=== PATIENT | female | born 1995 | race American Indian/Alaskan Native ===

== ENCOUNTER 2020-01-04 05:54 | Day surgery (SDC) | payer OTHER ==
[~2020-01-04 05:54] MED LIST: BUPIVACAINE/PF (0.25%) 2.5 MG/ML 30 ML VIAL INFILTRATI ONE; LIDOCAINE (1%) 10 MG/1 ML VIAL 20 ML MDV INFILTRATI ONE; SODIUM CHLORIDE 0.9% IRR 1,500 ML BOTTLE IR ONE
[2020-01-04] MEDS ORDERED: LACTATED RINGERS 1,000 ML IV SCH (06:00)
[2020-01-04] MEDS ORDERED: MIDAZOLAM 2 MG/2 ML INJ IV NR (06:00)
[2020-01-04] MEDS ORDERED: MAGNESIUM OXIDE 400 MG TAB PO SCH (06:00)
[2020-01-04] MEDS ORDERED: ceFAZolin/Water 2 GM/20 ML 2 GM/20 ML SYRINGE IV NR (06:00)
[2020-01-04] MEDS ORDERED: SCOPOLAMINE TRANSDERMAL PATCH 72 HR TD NR (06:00)
[2020-01-04] MEDS ORDERED: GABAPENTIN 300 MG CAP PO NR (06:00)
[2020-01-04] MEDS ORDERED: CELECOXIB 200 MG CAP PO NR (06:00)
[2020-01-04] MEDS ORDERED: BACTERIOSTATIC SODIUM CHLORIDE 0.9% 30 ML VIAL INFILTRATI ONE (06:25)
[2020-01-04] MEDS ORDERED: BUPIVACAINE/PF (0.25%) 2.5 MG/ML 30 ML VIAL INFILTRATI ONE ×2 (06:59→08:27)
[2020-01-04] MEDS ORDERED: LIDOCAINE (1%) 10 MG/1 ML VIAL 20 ML MDV ONE (06:59)
[2020-01-04] MEDS ORDERED: HYDROmorphone 1 MG/1 ML INJ ONE (07:12)
[2020-01-04] MEDS ORDERED: LIDOCAINE MPF (2%) 20 MG/1 ML VIAL 5 ML ONE (07:13)
[2020-01-04] MEDS ORDERED: propofoL 200 MG/20 ML VIAL IV ONE (07:13)
--- NOTE | 2020-01-04 07:22 | Short Stay Summary ---
Short Stay Documentation Date of service: 01/04/20 Narrative H&P: This is a 24-year-old premenopausal -[place] lady with right breast fibroadenoma. Patient recently underwent right breast mass at the 10 o'clock position 4 cm from the nipple ultrasound-guided needle core biopsy with findings of a fibroadenoma. Recommendations are to proceed with an excisional biopsy given increase in size. - History Past Medical History: No medical history Past Surgical History: No surgical history Social history: no significant social history - Allergies and Medications Current Medications: Allergies No Known Allergies Allergy (Verified 12/29/19 10:56) Home Medications Medication Instructions Recorded Confirmed Last Taken Type Norgestimate-Ethinyl Estradiol 1 each PO QDAY 08/05/19 12/29/19 01/03/20 History [Tri-Sprintec Tablet] Ferrous Sulfate [Iron 325 MG] 325 mg PO QDAY 12/29/19 12/29/19 01/03/20 History Active Medications Celecoxib (Celebrex) 200 mg PO PREOP NR Stop: 01/04/20 23:59 Gabapentin (Gabapentin) 600 mg PO PREOP NR Stop: 01/04/20 23:00 Cefazolin Sodium (Ancef/Sterile Water 2 Gm/20 Ml) 2 gm in 20 mls @ 80 mls/hr IV PREOP NR; Protocol Stop: 01/04/20 23:00 Lactated Ringer's (Lactated Ringers) 1,000 mls @ 100 mls/hr IV DIRECT SHALONDA Stop: 01/04/20 23:59 Magnesium Oxide (Mag-Ox) 400 mg PO PREOP SHALONDA Stop: 01/04/20 23:00 Midazolam HCl (Versed) 2 mg IV PREOP NR Stop: 01/04/20 23:00 Scopolamine (Transderm-Scop) 1 each TD PREOP NR Stop: 01/04/20 23:00 - Physical exam General appearance: no acute distress Integumentary: no rash, no growths, no abnormal pigmentation HEENT: Atraumatic, PERRLA, EOMI Lungs: Clear to auscultation Breasts: other (Known palpable mobile right breast fibroadenoma at 10:00 position 4 cm from the nipple) Heart: Regular rate Gastrointestinal: normal Female Genitourinary: deferred Rectal Exam: deferred Extremities: no ischemia, pulses intact, pulses symmetrical, No edema, normal temperature, normal color, Full ROM Neurological: Normal gait, Normal speech, Strength at 5/5 X4 ext, Normal tone, Sensation intact, Cranial nerves 3-12 NL, Reflexes 2+ - Brief post op/procedure progress note Date of procedure: 01/04/20 Pre-op diagnosis: Right breast fibroadenoma Post-op diagnosis: same Procedure: Right breast fibroadenoma excisional biopsy Anesthesia: GETA Findings: right breast fibroadenoma at 10:00 position 4 cm FN Surgeon: ABIMAEL LIU Estimated blood loss: minimal Pathology: list (right breast mass) Specimen disposition: to lab Condition: stable - Disposition Condition at discharge: Good Disposition: DC-01 TO HOME OR SELFCARE Short Stay Discharge Plan Activity: other (no heavy lifting) Diet: regular Wound: keep clean and dry (may shower on Thursday; no baths, pools or lakes; apply bacitracin twice a day) Follow up with: ABIMAEL LIU MD [Staff Physician] - 7 Days Prescriptions: oxyCODONE /ACETAMINOPHEN [Percocet 5/325] 1 tab PO Q6HR PRN #10 tablet PRN Reason: Pain
--- NOTE | 2020-01-04 07:29 | Operative Report ---
Operative Report Operative Report: January 04, 2020 Preoperative diagnosis: Right breast fibroadenoma of the upper outer quadrant Postoperative diagnosis: Same Procedure: Right breast fibroadenoma excisional biopsy of the upper outer quadrant Surgeon: Miesha Borjas MD Anesthesia: General Findings: Known right breast fibroadenoma palpable mobile mass at the 10 o'clock position 4 cm from the nipple with excision performed Complications: None Estimate estimated blood loss: Minimal Drains: None Disposition: PACU in good condition Occasions for operative procedure: This is a 24-year-old premenopausal - [place] lady with a right breast fibroadenoma of the of the upper outer quadrant. Patient with known mobile right breast mass at the 10 o'clock position 4 cm from the nipple and recent biopsy performed and recommendations for excisional biopsy given increase in size. Patient wished to proceed with the above procedure. Procedure in detail: Patient was taken to the operating room and was laid supine. General anesthesia was administered. Right breast palpable mobile fibroadenoma was present at the 10 o'clock position 4 cm from the nipple. The right breast was prepped and draped in the normal sterile operative fashion. Ultrasound was used as well. Lateral periareolar breast incision was made around the 10 o'clock position, skin incision made with a 15 blade knife. Dissection was taken down to the subcutaneous tissues. Procedure then began with raising of the lateral flap and the fibroadenoma was encountered that was appropriately dissected free from the surrounding breast tissues. Fibroadenoma with vascularity. Fibroadenoma was sent to pathology. Hemostasis was obtained with the Bovie cautery. The breast cavity was anesthetized with 1% lidocaine mixed with quarter percent Marcaine. Breast cavity was irrigated and suctioned. Hemostasis was present. The deep breast tissues were approximated and closed using interrupted 3-0 Vicryl, the subcutaneous tissue approximately and closed using interrupted 3-0 Vicryl. The skin was closed using running 4-0 Monocryl followed by Dermabond. She tolerated the procedure very well and was awakened from surgery without any complications and transported PACU in good condition.
[2020-01-04] MEDS ORDERED: dexAMETHasone 20 MG/5 ML VIAL ONE (07:35)
[2020-01-04] MEDS ORDERED: HYDROmorphone 1 MG/1 ML INJ IV PRN (07:40)
[2020-01-04] MEDS ORDERED: ONDANSETRON 4 MG/2 ML INJ IV PRN (07:40)
--- NOTE | 2020-01-04 07:40 | Anesthesia Consultation ---
Anesthesia Consult and Med Hx Date of service: 01/04/20 - Airway Anesthetic Teeth Evaluation: Good ROM Head & Neck: Adequate Mental/Hyoid Distance: Adequate Mallampati Class: Class II Intubation Access Assessment: Probably Good - Pulmonary Exam CTA: Yes - Cardiac Exam Cardiac Exam: RRR - Pre-Operative Health Status ASA Pre-Surgery Classification: ASA2 Proposed Anesthetic Plan: General - Pulmonary Hx Smoking: Yes (THC) Hx Respiratory Symptoms: No - Cardiovascular System Hx Hypertension: No - Central Nervous System CVA: No - Gastrointestinal Hx Gastroesophageal Reflux Disease: No - Endocrine Hx Renal Disease: No Hx Liver Disease: No Hx Insulin Dependent Diabetes: No Hx Non-Insulin Dependent Diabetes: No Hx Thyroid Disease: No - Hematic Hx Anemia: Yes (iron supplements) - Other Systems Hx Substance Use: Yes (THC regularly) Hx Obesity: No - Additional Comments Anesthesia Medical History Comments: No hx anesthetic complications.
--- NOTE | 2020-01-04 07:40 | Anesthesia Day of Surgery ---
Anesthesia Day of Surgery - Day of Surgery Patient Examined: Yes Patient H&P Reviewed: Yes Patient is NPO: Yes
[2020-01-04] MEDS ORDERED: BACITRACIN ZINC OINT 28.4 GM TP ONE ×2 (08:24→08:45)
[2020-01-04] MEDS ORDERED: LIDOCAINE (1%) 10 MG/1 ML VIAL 20 ML MDV INFILTRATI ONE (08:27)
[2020-01-04] MEDS ORDERED: SODIUM CHLORIDE 0.9% IRR 1,500 ML BOTTLE IR ONE (08:32)
[2020-01-04] MEDS ORDERED: ONDANSETRON 4 MG/2 ML INJ ONE (08:35)
[2020-01-04 09:18] VITALS: BP 134/90
--- NOTE | 2020-01-04 11:51 | Post Anesthesia Evaluation ---
- Post Anesthesia Evaluation Patient Participated: Yes Airway Patent: Yes Stable Respiratory Function: Yes Nausea/Vomiting: No Temp > 96.8F: Yes Pain Manageable: Yes Adequeate Hydration: Yes Anesthesia Complications: No
== END 2020-01-04 05:55 | disposition home or self-care (01) ==
LOC: OR 05:54
PROVIDERS: ATTEND Surgery
DX: D24.1 Benign neoplasm of right breast (principal); D64.9 Anemia, unspecified; Z98.890 Other specified postprocedural states; Z79.899 Other long term (current) drug therapy; Z80.3 Family history of malignant neoplasm of breast
CPT/HCPCS: 19120; 36415; 84703; 88307; J0690; J1100; J1170; J2250; J2405; J2704; J7120